=== PATIENT | female | born 1955 ===

== ENCOUNTER → 2024-09-23 | Outpatient (CLI) | payer MEDICARE ==
--- NOTE | 2024-09-23 13:06 | MR ---
EXAMINATION TYPE: MR brain wo con DATE OF EXAM: 09/23/2024 12:34 PM COMPARISON: None. 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 No gadolinium was given. FINDINGS: No finding on 3rd cranial nerves bilaterally. The medial cranial nerve on the left is asymmetrically decreased in volume. Mild cerebral atrophy with proportional dilation of ventricular system. Scatte red foci of high T2 signal intensity are seen within the periventricular white matter. Midline struct ures show no abnormality. Diffusion-weighted imaging shows no evidence of restricted diffusion. The s usceptibility weighted images do not reveal any evidence for micro-hemorrhage. Left lateral developme nt of venous anomaly series 502 image 425 The bone marrow signal is within normal limits. Paranasal sinuses and mastoid air cells: No significant paranasal sinus disease. Visualized orbits: Orbital contents are intact. IMPRESSION: 1. Decreased volume of the left medial rectus muscle of the left ICA no other finding definitively vi sualized to explain patient's wondering No evidence of intracranial mass or acute/subacute infarct. 2. Nonspecific white matter changes, likely secondary to small vessel ischemic disease. 3. Left posterior frontal developmental venous anomaly. [facility], , 09/23/2024 1:04 PM
== END | disposition home or self-care (01) ==
LOC: RADMRIMAIN 11:30
PROVIDERS: ATTEND Ophthalmology
DX: H49.02 Third [oculomotor] nerve palsy, left eye (principal); R90.82 White matter disease, unspecified
CPT/HCPCS: 70551